=== PATIENT | male | born 1985 | race Caucasian/White ===

== ENCOUNTER 2020-09-29 21:34 | Emergency (ER) | payer BC, SELFPAY ==
[2020-09-29 22:06] VITALS: BP 142/80; PULSE 84; RESP 20; TEMP 37; O2SAT 97
--- NOTE | 2020-09-29 22:15 | ED.SKABFB ---
HPI - Skin/Abscess/Foreign Bdy General Chief complaint: Unspecified Stated complaint: swelling in (R)arm and (both)leg, heat on R arm Time Seen by Provider: 09/29/20 22:10 Source: patient Mode of arrival: ambulatory Limitations: no limitations History of Present Illness HPI narrative: Patient comes in with mild tenderness, warmth, and erythema in his right posterior upper arm, which he noticed about an hour ago. He started noticing the arm becoming tender about 630pm tonight. This has seemed to become more tender as time has gone on. 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 complaint: rash Location: RUE Severity: moderate Quality: aching and dull Pain Consistency: constant Relieving factors: none Exacerbating factors: other (touch increases discomfort) Associated symptoms: denies other symptoms Related Data Home Medications Medication Instructions Recorded Confirmed hyoscyamine sulfate 0.125 mg PO BID 09/29/20 09/29/20 ketorolac 10 mg PO BID 09/29/20 09/29/20 phenazopyridine 100 mg PO BID 09/29/20 09/29/20 tamsulosin 0.4 mg PO BID 09/29/20 09/29/20 Allergies Allergy/AdvReac Type Severity Reaction Status Date / Time No Known Allergies Allergy Verified 09/29/20 22:11 Review of Systems Constitutional: Constitutional: Reports no additional constitutional complaints Eyes: Eyes: Reports no additional eye complaints ENT: Reports system reviewed and no additional complaints, except as documented Cardiovascular: Cardiovascular: Reports no additional cardiovascular complaints Respiratory: Respiratory: Reports no additional respiratory complaints Gastrointestinal: Gastrointestinal: Reports no additional gastrointestinal complaints Genitourinary: Genitourinary: Reports no additional male genitourinary complaints Musculoskeletal: Musculoskeletal: Reports no additional musculoskeletal complaints Integumentary/Breasts: Skin/Breast: Reports system reviewed and no additional complaints, except as docu Neurologic: Reports system reviewed and no additional complaints, except as documented Psychiatric: Psychiatric: Reports no additional psychiatric complaints Endocrine: Endocrine: Reports no additional endocrine complaints Hematologic/Lymphatic: Hematologic/Lymphatic: Reports no additional hematologic/lymphatic complaints Allergic/Immunologic: Allergic/Immunologic: Reports no additional allergic/immunologic complaints PMFSH Past Medical History Medical History Renal calculi Surgical History Surgical History (Updated 09/30/20 @ 02:05 by Stuart Saez MD) History of ureter stent Family History Family History Father Lung cancer Mother Lung cancer Social History Social History (Updated 09/30/20 @ 02:08 by Stuart Saez MD) Smoking status: Never smoker Alcohol intake: never Additional occupation/education comments: 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 Gender identity (if verbalized by the patient): Male Sexual Orientation (if Verbalized by the Patient): Straight or Heterosexual Exam Const: General: no acute distress and alert Orientation/consciousness: patient oriented x3 HENMT: Head: normal to inspection Ears: external ears normal and TM's normal bilaterally General nose exam: Normal external nose present and Normal nares present Mouth: Yes Normal oral and palatal mucosa present Throat: posterior oropharynx normal Eyes: Conjunctivae: conjunctivae normal Neck: Neck: normal visual inspection Chest: Chest palpation & inspection: normal inspection of the chest Resp: Effort & Inspection: normal respiratory effort Auscultation: clear to auscultation bilaterally Cardio: Rate: regular rate Rhythm: regular rhythm GI: Auscultation: normal bowel sounds (nontender) Back/Spine/Pelvis: Back: no CVA tenderness Skin: Oth
[2020-09-29] MEDS: cefTRIAXone 1 GM VIAL IM (22:27)
[2020-09-29] MEDS: LIDOCAINE HCL 1% LOCAL INJ 20 ML VIAL (22:27)
[2020-09-29 22:35] VITALS: BP 140/78; PULSE 87; RESP 20; O2SAT 98
== END 2020-09-29 22:42 | disposition home or self-care (01) ==
PROVIDERS: Emergency Provider Emergency Medicine; PCP Family Medicine
DX: L03.113 Cellulitis of right upper limb (principal)
CPT/HCPCS: 96372; 99283; J0696

== ENCOUNTER 2021-04-21 20:43 | Emergency (ER) | payer OTHER, SELFPAY ==
[2021-04-21 20:49] VITALS: BP 142/101; PULSE 99; RESP 16; TEMP 36.3; O2SAT 96
--- NOTE | 2021-04-21 20:50 | ED.EYEPROB ---
HPI - Eye Problem General Chief complaint: Eye Problems Stated complaint: eye injury Source: patient and RN notes reviewed Mode of arrival: ambulatory Limitations: no limitations History of Present Illness chief complaint: eye injury Onset (ago): minute(s) (10) Onset description: sudden Duration: constant Location: right eye Eye Symptoms: burning and pain Place: home Mechanism: direct trauma (guitar string) Severity: moderate If Pain, Quality: sharp and burning Associated symptoms: none Treatments Prior to Arrival: none Related Data Home Medications Medication Instructions Recorded Confirmed No Home Medications 04/21/21 04/21/21 Allergies Allergy/AdvReac Type Severity Reaction Status Date / Time No Known Allergies Allergy Verified 04/21/21 20:55 Review of Systems Review of Systems: All systems reviewed & are unremarkable except as noted in HPI and below PMFSH Past Medical History Medical History Renal calculi Surgical History Surgical History History of ureter stent Family History Family History Father Lung cancer Mother Lung cancer Social History Social History (Updated 04/21/21 @ 21:24 by Stuart Chapin MD) Smoking status: Never smoker Alcohol intake: current Alcohol use details: occasional 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 Gender identity (if verbalized by the patient): Male Sexual Orientation (if Verbalized by the Patient): Straight or Heterosexual Exam Const: General: healthy appearing, no acute distress and alert Nutritional Appearance: well nourished Orientation/consciousness: patient oriented x3 HENMT: Head: normal to inspection Ears: external ears normal Face and sinus: normal facial exam Eyes: Eyelids: eyelids normal Sclera: scleral abnormality right hemorrhage and scleral injection medial Cornea: corneas abnormal on the right fluorescein used and abrasion linear and at the following clock position (3 o'clock) Pupils: Equal, round and reactive pupils present EOM: EOMs intact bilaterally Neck: Neck: normal visual inspection Resp: Effort & Inspection: normal respiratory effort Auscultation: clear to auscultation bilaterally Cardio: Rate: regular rate Rhythm: regular rhythm GI: GI Palp: Yes Soft to palpation and No Tenderness to palpation present (GI) Auscultation: normal bowel sounds Back/Spine/Pelvis: Cervical Spine: cervical ROM normal Thoracic/Lumbar Spine: thoraco-lumbar ROM normal Skin: General skin exam: normal color Rashes: no rashes Neuro: General: patient oriented x3, moves all extremities, no meningeal signs, no focal motor deficits and CN's II-XI intact bilaterally Speech: normal speech Gait exam (Neuro): Normal gait present Extrem: General: normal to inspection and no clubbing, cyanosis or edema Psych: Appearance: grossly normal and well kempt Mental Status: mental status grossly normal Affect: normal affect Attitude: cooperative Thought content: Yes Normal thought content present Course Vital Signs Vital signs: Vital Signs Temperature 36.3 C L 04/21/21 20:49 Pulse Rate 99 04/21/21 20:49 Respiratory Rate 16 04/21/21 20:49 Blood Pressure 142/101 H 04/21/21 20:49 Pulse Oximetry 96 04/21/21 20:49 Temperature 36.6 C 04/21/21 21:35 Pulse Rate 84 04/21/21 21:35 Respiratory Rate 16 04/21/21 21:35 Blood Pressure 117/84 04/21/21 21:35 Pulse Oximetry 97 04/21/21 21:35 Discharge Plan Discharge Clinical Impression: Corneal abrasion Qualifiers: Encounter type: initial encounter Laterality: right Qualified Code(s): S05.01XA - Injury of conjunctiva and corneal abrasion without foreign body, right eye, initial encounter Patient Disposition: Home, Self-Care Condition: Improved Instructions: Corneal
[2021-04-21] MEDS: TETRACAINE HCL 0.5% OPHTH SOLN 4 ML BTL 1 DROP RIGHT EYE (20:59)
[2021-04-21] MEDS: FLUORESCEIN SOD 1 MG/STRIP (21:27)
[2021-04-21] MEDS: TOBRAMYCIN SULFATE 0.3% OPHTH SOLN 5 ML 2 DROP RIGHT EYE (21:34)
[2021-04-21 21:35] VITALS: BP 117/84; PULSE 84; RESP 16; TEMP 36.6; O2SAT 97
== END 2021-04-21 21:40 | disposition home or self-care (01) ==
PROVIDERS: Emergency Provider Emergency Medicine; PCP Family Medicine
DX: S05.01XA Injury of conjunctiva and corneal abrasion without foreign body, right eye, initial encounter (principal); W22.8XXA Striking against or struck by other objects, initial encounter
CPT/HCPCS: 99282; 99283; A9270